=== PATIENT | female | born 1985 | race Caucasian/White ===

== ENCOUNTER 2019-04-05 15:17 | Emergency (ER) | payer MEDICAID ==
[~2019-04-05] VITALS: Ht 162.6 cm; Wt 61.4 kg
[~2019-04-05 15:17] MED LIST: CYCL5TAB PO
[2019-04-05 15:26] VITALS: BP 129/93
== END 2019-04-05 16:49 | disposition home or self-care (01) ==
LOC: ER 15:18
DX: S82.61XA Displaced fracture of lateral malleolus of right fibula, initial encounter for closed fracture (principal); Z79.899 Other long term (current) drug therapy; W10.8XXA Fall (on) (from) other stairs and steps, initial encounter; Y93.39 Activity, other involving climbing, rappelling and jumping off; Y92.89 Other specified places as the place of occurrence of the external cause; Y99.8 Other external cause status
CPT/HCPCS: 73610; 99283

== ENCOUNTER 2019-04-25 11:49 | Outpatient (CLI) | payer MEDICAID ==
[2019-04-25 16:03] VITALS: BP 122/100
== END 2019-04-25 12:25 | disposition home or self-care (01) ==
LOC: ORTHO 11:49
PROVIDERS: ATTEND Orthopaedic Surgery
DX: S82.64XD Nondisplaced fracture of lateral malleolus of right fibula, subsequent encounter for closed fracture with routine healing (principal); M79.89 Other specified soft tissue disorders; F17.200 Nicotine dependence, unspecified, uncomplicated; X58.XXXD Exposure to other specified factors, subsequent encounter
CPT/HCPCS: 73610; G0463

== ENCOUNTER 2019-05-30 15:17 | Outpatient (CLI) | payer MEDICAID | END 2019-05-30 15:53 | disposition home or self-care (01) | LOC: ORTHO 15:17 | PROVIDERS: ATTEND Orthopaedic Surgery | DX: S82.831D Other fracture of upper and lower end of right fibula, subsequent encounter for closed fracture with routine healing (principal); F17.200 Nicotine dependence, unspecified, uncomplicated; X58.XXXD Exposure to other specified factors, subsequent encounter | CPT/HCPCS: 73610; G0463 ==

== ENCOUNTER 2019-07-03 11:17 | Emergency (ER) | payer MEDICAID ==
[~2019-07-03] VITALS: Ht 162.6 cm; Wt 76.4 kg
[2019-07-03 11:20] VITALS: BP 128/74
[2019-07-03 11:48] LABS: CLARITY,URINE CLOUDY (Clear); COLOR,URINE YELLOW (Yellow); GLUCOSE, URINE NEGATIVE (Neg); KETONES,URINE NEGATIVE (Neg); LEUKOCYTE ESTERASE ,URINE TRACE (Neg); NITRITES, URINE POSITIVE (Neg); OCCULT BLOOD,URINE NEGATIVE (Neg); PH,URINE 8.5 (4.8-8.0); PROTEIN,URINE NEGATIVE (Neg); URINE HCG POSITIVE (NEG)
[2019-07-03 11:53] LABS: UA COLLECTION TYPE CLN CATCH MIDSTREAM
[2019-07-03 11:55] LABS: WBC,URINE 20-30 /HPF (0-4)
[2019-07-03 11:56] LABS: AMORPHOUS PHOSPHATES 2+; BACTERIA,URINE 4+ /HPF (Neg); MUCUS STRANDS NONE SEEN /LPF (Neg); RBC,URINE NONE SEEN /HPF (0-2); SQUAMOUS EPITHELIAL CELL,UR FEW /LPF (FEW); WBC CLUMPS,URINE FEW /HPF (NEGATIVE)
[2019-07-03 12:01] LABS: BASOPHILS # (AUTO) 0.1 X10'3 (0-0.2); BASOPHILS % (AUTO) 0.9 % (0-1); EOSINOPHILS # (AUTO) 0.7 X10'3 (0-0.9); HEMATOCRIT 38.2 % (35.0-45.0); HEMOGLOBIN 12.9 g/dl (12.0-16.0); LYMPHOCYTES # (AUTO) 2.4 X10'3 (1.1-4.8); LYMPHOCYTES % (AUTO) 23.6 % (21-51); MEAN CORPUSCULAR HEMOGLOBIN 29.5 PG (27.0-31.0); MEAN CORPUSCULAR HGB CONC 33.6 g/dL (33.0-36.5); MEAN CORPUSCULAR VOLUME 87.6 FL (78-98); MEAN PLATELET VOLUME 6.8 FL (7.4-10.4); NEUTROPHILS # (AUTO) 5.9 X10'3 (1.8-7.7); NEUTROPHILS % (AUTO) 58.5 % (42-75); PLATELET COUNT 532 X10'3 (140-440); RED BLOOD COUNT 4.37 X10'6 (4.20-5.60); RED CELL DISTRIBUTION WIDTH 14.3 % (11.5-14.5); WHITE BLOOD COUNT 10.1 X10'3 (4.5-11.0)
[2019-07-03 12:10] LABS: ALANINE AMINOTRANSFERASE 20 U/L (12-78); ALBUMIN 3.4 G/DL (3.4-5.0); ALBUMIN/GLOBULIN RATIO 0.8 (1.1-1.5); ALKALINE PHOSPHATASE 77 IU/L (46-116); ANION GAP 8 (8-16); ASPARTATE AMINO TRANSFERASE 13 U/L (10-37); BILIRUBIN,TOTAL 0.3 MG/DL (0.1-1.0); BLOOD UREA NITROGEN 8 MG/DL (7-18); BUN/CREATININE RATIO 8.7 (6.6-38.0); CALCIUM 8.3 MG/DL (8.5-10.1); CHLORIDE 108 MMOL/L (99-107); CREATININE 0.92 MG/DL (0.40-0.90); GLUCOSE 86 MG/DL (70-104); POTASSIUM 3.8 MMOL/L (3.5-5.1); SODIUM 143 MMOL/L (135-145); TOTAL PROTEIN 7.8 G/DL (6.4-8.2); eGFR 70 ML/MIN
[2019-07-03] MEDS ORDERED: CEPH250T PO (13:26)
== END 2019-07-03 13:38 | disposition home or self-care (01) ==
LOC: ER 11:18
DX: N39.0 Urinary tract infection, site not specified (principal); Z33.1 Pregnant state, incidental; Z90.81 Acquired absence of spleen; Z98.890 Other specified postprocedural states; Z79.899 Other long term (current) drug therapy
CPT/HCPCS: 36415; 80053; 81001; 81025; 84702; 85025; 85610; 87077; 87088; 87186; 99283

== ENCOUNTER 2022-02-22 20:10 | Emergency (ER) | payer MEDICAID ==
[~2022-02-22] VITALS: Ht 162.6 cm; Wt 86.4 kg
[2022-02-22 20:56] LABS: ALANINE AMINOTRANSFERASE 16 U/L (12-78); ALBUMIN 2.9 G/DL (3.4-5.0); ALBUMIN/GLOBULIN RATIO 0.6 (1.1-1.5); ALKALINE PHOSPHATASE 81 IU/L (46-116); ANION GAP 9 (8-16); ASPARTATE AMINO TRANSFERASE 10 U/L (10-37); BILIRUBIN,TOTAL 0.2 MG/DL (0.1-1.0); BLOOD UREA NITROGEN 9 MG/DL (7-18); BUN/CREATININE RATIO 12.3 (6.6-38.0); CALCIUM 8.6 MG/DL (8.5-10.1); CHLORIDE 100 MMOL/L (99-107); CREATININE 0.73 MG/DL (0.40-0.90); GLUCOSE 95 MG/DL (70-104); LIPASE < 50 U/L (73-393); POTASSIUM 3.9 MMOL/L (3.5-5.1); SODIUM 135 MMOL/L (135-145); TOTAL CARBON DIOXIDE 26.1 MMOL/L (24-32); TOTAL PROTEIN 7.9 G/DL (6.4-8.2); eGFR > 90 ML/MIN
[2022-02-22 21:43] LABS: BASOPHILS # (AUTO) 0.1 X10'3 (0-0.2); BASOPHILS % (AUTO) 0.4 % (0-1); EOSINOPHILS # (AUTO) 0.3 X10'3 (0-0.9); EOSINOPHILS % (AUTO) 2.1 % (0-6); HEMOGLOBIN 8.4 g/dl (12.0-16.0); LYMPHOCYTES % (AUTO) 14.1 % (21-51); MEAN CORPUSCULAR HEMOGLOBIN 23.3 PG (27.0-31.0); MEAN CORPUSCULAR HGB CONC 31.2 g/dL (33.0-36.5); MEAN CORPUSCULAR VOLUME 74.7 FL (78-98); MEAN PLATELET VOLUME 6.2 FL (7.4-10.4); MONOCYTES % (AUTO) 7.1 % (2-12); NEUTROPHILS # (AUTO) 10.7 X10'3 (1.8-7.7); NEUTROPHILS % (AUTO) 76.3 % (42-75); PLATELET COUNT 915 X10'3 (140-440); RED BLOOD COUNT 3.61 X10'6 (4.20-5.60); RED CELL DISTRIBUTION WIDTH 16.1 % (11.5-14.5)
[2022-02-22 21:44] LABS: URINE HCG NEGATIVE (NEG)
[2022-02-22 21:49] LABS: CLARITY,URINE SLIGHTLY CLOUDY (Clear); COLOR,URINE YELLOW (Yellow); GLUCOSE, URINE NEGATIVE (Neg); KETONES,URINE NEGATIVE (Neg); LEUKOCYTE ESTERASE ,URINE NEGATIVE (Neg); NITRITES, URINE POSITIVE (Neg); OCCULT BLOOD,URINE NEGATIVE (Neg); PROTEIN,URINE NEGATIVE (Neg); UROBILINOGEN,URINE 0.2 E.U/dL (0.2-1.0)
[2022-02-22 21:54] LABS: UA COLLECTION TYPE CLN CATCH MIDSTREAM
--- NOTE | 2022-02-22 21:56 | NUR ---
ASSUMED CARE OF PT. PT DOES NOT APPEAR IN DISTRESS. PT ON IPAD WHEN I WALKED IN ROOM. NOTED DRY HEAVING FOR THE PAST WEEK. SHE INDICATES THAT SHE HAS BEEN DRINKING MILK AND TAKING TUMS TO HELP ALLEVIATE EPIGASTRIC PAIN.
[2022-02-22 21:59] LABS: BACTERIA,URINE 4+ /HPF (Neg); MUCUS STRANDS FEW /LPF (Neg); SQUAMOUS EPITHELIAL CELL,UR FEW /LPF (FEW); TRANSITIONAL EPI CELLS,URINE FEW /HPF; WBC CLUMPS,URINE FEW /HPF (NEGATIVE)
[2022-02-22] MEDS ORDERED: normal saline 1000ml 1,000 ML IV ONE (22:45)
[2022-02-22] MEDS ORDERED: iohexol 300mg/ml 100ml inj. ONE (23:20)
[2022-02-23] MEDS ORDERED: cephalexin 250mg capsule PO ONE (00:45)
[2022-02-23] MEDS ORDERED: CEPH-585 PO (00:47)
[2022-02-23 01:25] VITALS: BP 122/78
[2022-02-23 01:36] LABS: OCCULT BLOOD STOOL NEGATIVE (Neg)
[2022-02-23 04:51] LABS: ANISOCYTOSIS 1+; BURR CELLS FEW; ELLIPTOCYTES FEW; PLATELET ESTIMATE INCREASED; TARGET CELLS FEW
[2022-02-23 04:52] LABS: POLYCHROMASIA FEW
== END 2022-02-23 01:28 | disposition home or self-care (01) ==
LOC: ER 20:10
DX: N39.0 Urinary tract infection, site not specified (principal); D64.9 Anemia, unspecified; R19.00 Intra-abdominal and pelvic swelling, mass and lump, unspecified site
CPT/HCPCS: 36415; 74176; 74177; 80053; 81001; 81025; 82272; 83690; 85008; 85025; 87077; 87088; 87186; 96360; 96361; 99285; J7030; Q9967

== ENCOUNTER 2022-06-18 16:31 | Emergency (ER) | payer MEDICAID ==
[~2022-06-18] VITALS: Ht 162.6 cm; Wt 86.4 kg
[~2022-06-18 16:31] MED LIST changes: +CEPH-585 PO
[2022-06-18 16:38] VITALS: BP 117/74
[2022-06-18] MEDS ORDERED: ketorolac trometh. 30mg/ml inj. IR ONE (20:25)
[2022-06-18] MEDS ORDERED: ketorolac trometh inj. 60 MG/2 ML VIAL IM ONE (20:25)
== END 2022-06-18 21:00 | disposition home or self-care (01) ==
LOC: ER 16:31
DX: S63.502A Unspecified sprain of left wrist, initial encounter (principal); S83.91XA Sprain of unspecified site of right knee, initial encounter; R35.0 Frequency of micturition; M25.522 Pain in left elbow; Z79.899 Other long term (current) drug therapy; Z79.1 Long term (current) use of non-steroidal anti-inflammatories (NSAID); Z79.2 Long term (current) use of antibiotics; X58.XXXA Exposure to other specified factors, initial encounter; Y93.89 Activity, other specified; Y92.89 Other specified places as the place of occurrence of the external cause; Y99.8 Other external cause status
CPT/HCPCS: 29260; 29530; 73080; 73110; 73564; 96372; 99284; J1885; L3908; A6449

== ENCOUNTER 2023-01-25 22:12 | Emergency (ER) | payer MEDICAID | END 2023-01-26 06:44 | disposition left against medical advice (07) | LOC: ER 22:12 | DX: Z00.8 Encounter for other general examination (principal); Z53.21 Procedure and treatment not carried out due to patient leaving prior to being seen by health care provider ==

== ENCOUNTER 2023-07-18 20:47 | Emergency (ER) | payer MEDICAID ==
[~2023-07-18 20:47] MED LIST changes: -CEPH-585 PO
== END 2023-07-18 21:30 | disposition left against medical advice (07) ==
LOC: ER 20:47
DX: K08.89 Other specified disorders of teeth and supporting structures (principal); Z53.21 Procedure and treatment not carried out due to patient leaving prior to being seen by health care provider

== ENCOUNTER 2024-02-03 13:00 | Emergency (ER) | payer MEDICAID ==
[~2024-02-03] VITALS: Ht 162.6 cm; Wt 73.8 kg
[2024-02-03 13:04] VITALS: BP 126/88; PULSE 99; RESP 16; TEMP 98.6; O2SAT 100
[2024-02-03 13:33] LABS: BILIRUBIN,URINE NEGATIVE (Neg); COLOR,URINE YELLOW (Yellow); GLUCOSE, URINE NEGATIVE (Neg); KETONES,URINE TRACE mg/dl (Neg); LEUKOCYTE ESTERASE ,URINE NEGATIVE (Neg); NITRITES, URINE POSITIVE (Neg); OCCULT BLOOD,URINE NEGATIVE (Neg); PROTEIN,URINE NEGATIVE (Neg); UROBILINOGEN,URINE 0.2 E.U/dL (0.2-1.0)
[2024-02-03 13:39] LABS: CLARITY,URINE SLIGHTLY CLOUDY (Clear); UA COLLECTION TYPE CLN CATCH MIDSTREAM
[2024-02-03 13:40] LABS: BACTERIA,URINE 4+ /HPF (Neg); MUCUS STRANDS MANY /LPF (Neg); RBC,URINE 0-2 /HPF (0-2); SQUAMOUS EPITHELIAL CELL,UR MODERATE /LPF (FEW)
[2024-02-03 13:41] LABS: URINE HCG NEGATIVE (NEG)
[2024-02-03] MEDS ORDERED: DOXY-1 PO (14:56)
== END 2024-02-03 15:18 | disposition home or self-care (01) ==
LOC: ER 13:01
DX: L03.311 Cellulitis of abdominal wall (principal); Z79.899 Other long term (current) drug therapy; Z79.2 Long term (current) use of antibiotics
CPT/HCPCS: 81001; 81025; 87077; 87088; 87186; 99283

== ENCOUNTER 2024-03-20 22:28 | Emergency (ER) | payer MEDICAID ==
[~2024-03-20] VITALS: Ht 162.6 cm; Wt 72.5 kg
[2024-03-20 22:35] VITALS: BP 127/91; PULSE 102; RESP 16; TEMP 98; O2SAT 98
== END 2024-03-20 23:30 | disposition home or self-care (01) ==
LOC: ER 22:28
DX: S63.502A Unspecified sprain of left wrist, initial encounter (principal); W19.XXXA Unspecified fall, initial encounter; Y93.89 Activity, other specified; Y92.89 Other specified places as the place of occurrence of the external cause; Y99.8 Other external cause status
CPT/HCPCS: 29125; 73110; 99283